=== PATIENT | male | born 1975 | race Caucasian/White ===

== ENCOUNTER 2024-12-31 11:25 | Outpatient (OUT) | payer BC, SELFPAY ==
[2024-12-31 12:31] LABS: Hematocrit 33.3 % (42.0-54.0); Hemoglobin 9.5 g/dL (14.0-18.0); Immature Granulocytes Abs Auto 0.01 10^3/uL (0.00-0.03); Immature Granulocytes Pct Auto 0.3 % (0.0-0.5); Lymphocytes Absolute Auto 2.0 10^3/uL (1.2-3.8); Mean Corpuscular HGB Conc 28.5 g/dL (29.9-35.2); Mean Corpuscular Hemoglobin 20.0 pg (25.9-34.0); Mean Corpuscular Volume 70.1 fL (80.0-94.0); Platelet Count 258 10^3/uL (150-450); Red Blood Count 4.75 10^6/uL (4.70-6.10); White Blood Count 4.0 10^3/uL (4.0-11.0)
[2024-12-31 15:30] LABS: Alanine Aminotransferase 13 U/L (16-63); Albumin Globulin Ratio 1.1; Albumin Level 3.8 g/dL (3.4-5.0); Alkaline Phosphatase 74 U/L (46-116); Anion Gap 11.4; Aspartate Amino Transferase 9 U/L (15-37); Blood Urea Nitrogen 10.0 mg/dL (7.0-18.0); Calcium 8.6 mg/dL (8.5-10.1); Carbon Dioxide 27.9 mmol/L (21.0-32.0); Chloride 104 mmol/L (98-107); Cholesterol 173 mg/dL (<=200); Estimated GFR (African America >60 (>=60 mL/min/1.73m^2); Estimated GFR (Non-African Ame >60 (>=60 mL/min/1.73m^2); Globulin 3.5 g/dL; Glucose 108 mg/dL (74-106); HDL Cholesterol 41 mg/dL (40-60); Potassium 4.3 mmol/L (3.5-5.1); Sodium 139 mmol/L (136-145); Thyroid Stimulating Hormone 2.719 uIU/mL (0.358-3.740); Total Protein 7.3 g/dL (6.4-8.2); Triglycerides 86 mg/dL (<=150); VLDL CHOLESTEROL 17.2 mg/dL
== END 2024-12-31 11:26 | disposition home or self-care (01) ==
LOC: LAB 11:32
PROVIDERS: PCP Family Medicine; Visit Provider Family Medicine
DX: Z00.00 Encounter for general adult medical examination without abnormal findings (principal); E11.9 Type 2 diabetes mellitus without complications
CPT/HCPCS: 36415; 80053; 80061; 82043; 82570; 83036; 84439; 84443; 85025